=== PATIENT | female | born 1990 ===

== ENCOUNTER 2020-05-15 10:02 | Day surgery (SDC) | payer OTHER ==
[~2020-05-15 10:02] MED LIST: FENTANYL CITRATE INJ/PF 100 MCG/2 ML AMPUL ONE; MIDAZOLAM 2 MG/2 ML INJ ONE; PROPOFOL INJ 200 MG/20 ML VIAL IV ONE
[2020-05-15] MEDS ORDERED: DEXAMETHASONE SOD PHOSPHATE INJ 4 MG/1 ML VIAL ONE (10:31)
[2020-05-15] MEDS ORDERED: ONDANSETRON HCL INJ/PF 4 MG/2 ML SDV ONE (10:31)
[2020-05-15] MEDS ORDERED: KETOROLAC TROMETHAMINE 60 MG/2 ML SDV ONE (10:31)
[2020-05-15] MEDS ORDERED: METOCLOPRAMIDE HCL INJ/PF 10 MG/2 ML SDV ONE (10:31)
[2020-05-15 11:30] LABS: APPEARANCE,URINE SLIGHTLY-CLOUDY; BILIRUBIN,URINE NEGATIVE (NEGATIVE); COLOR,URINE YELLOW; GLUCOSE, URINE NEGATIVE (NEGATIVE); KETONES,URINE NEGATIVE (NEGATIVE); LEUKOCYTE ESTERASE,URINE NEGATIVE (NEGATIVE); NITRITE,URINE NEGATIVE (NEGATIVE); PROTEIN,URINE 30 mg/dL (NEGATIVE); URINE SPECIFIC GRAVITY 1.029; UROBILINOGEN,URINE NEGATIVE mg/dL (<2.0)
[2020-05-15 11:41] LABS: HEMATOCRIT 36.1 % (36.0-47.0); HEMOGLOBIN 12.4 g/dL (12.0-15.5); MEAN CORPUSCULAR HEMOGLOBIN 31.4 pg (27.0-33.4); MEAN CORPUSCULAR HGB CONC 34.4 g/dL (32.0-36.0); MEAN CORPUSCULAR VOLUME 91 fl (80-97); PLATELET COUNT 257 10^3/uL (150-450); RED BLOOD COUNT 3.95 10^6/uL (3.72-5.28); RED CELL DISTRIBUTION WIDTH 11.7 % (11.5-14.0); WHITE BLOOD COUNT 3.9 10^3/uL (4.0-10.5)
[2020-05-15] MEDS ORDERED: MEPERIDINE HCL/PF INJ 25 MG/1 ML DISP.SYRIN IV PRN (12:32)
[2020-05-15] MEDS ORDERED: FENTANYL CITRATE INJ/PF 100 MCG/2 ML AMPUL IV PRN ×2 (12:32)
[2020-05-15] MEDS ORDERED: DIPHENHYDRAMINE HCL 50 MG/ML VIAL IV PRN (12:32)
[2020-05-15] MEDS ORDERED: PROMETHAZINE HCL INJ 25 MG/1 ML VIAL IV PRN (12:32)
[2020-05-15] MEDS ORDERED: KETOROLAC TROMETHAMINE INJ/PF 30 MG/1 ML SDV IM PRN (13:17)
[2020-05-15] MEDS ORDERED: IBUPROFEN 800 MG TABLET ONE (13:27)
[2020-05-15] MEDS ORDERED: IBUPROFEN 800 MG TABLET PO PRN (13:30)
[2020-05-15] MEDS ORDERED: OXYCODONE-ACETAMINOPHEN 5-325 MG TABLET PO PRN ×2 (13:30)
[2020-05-15] MEDS ORDERED: RINGERS SOLUTION,LACTATED 1,000 ML IV PRN (13:30)
--- NOTE | 2020-05-15 14:29 | Operative Report ---
Operative Report DATE OF SURGERY: 05/15/20 PREOPERATIVE DIAGNOSIS: Retained IUD. Failed removal in office. Desired ling muniz POSTOPERATIVE DIAGNOSIS: Same as above OPERATION: Diagnostic hysteroscopy with removal of IUD SURGEON: MARTINEZ LOYOLA ANESTHESIA: LMAC TISSUE REMOVED OR ALTERED: IUD removed COMPLICATIONS: None ESTIMATED BLOOD LOSS: 5 cc INTRAOPERATIVE FINDINGS: IUD seen just inside internal os. Strings upward. Both ostia seen inside normal appearing endometrial cavity PROCEDURE: IV fluids: Crystalloid IV fluids per anesthesia record Disposition: To recovery room in stable condition Description of the procedure: The patient was taken to the operating room where monitored anesthesia was administered and found to be adequate she was then placed in the dorsol lithotomy position and prepped and draped in the usual sterile fashion. A timeout was taken. A bivalve speculum was placed in the vagina and the cervix was brought into good view. A single-tooth tenaculum was used to grasp the anterior lip of the cervix and the cervix was serially dilated. The hysteroscope was then inserted and using a saline distention medium the uterine cavity was inspected multiple pictures were obtained. IUD identified and removed easily with polyp forceps. Pictures obtained and the proc edure was then terminated all instruments were removed from the patient's vagina. The patient tolerated the procedure well all instrument sponge and needle counts were correct x2 for the procedure she will proceed to recovery room in stable condition
[2020-05-15 14:30] VITALS: BP 88/58
--- NOTE | 2020-05-15 14:31 | Discharge Summary ---
Discharge Summary (SDC) - Discharge Final Diagnosis: Retained IUD s/p removal post op Date of Surgery: 05/15/20 Discharge Date: 05/15/20 Condition: Stable Forms: ASU Anesthesia D/C Instruction, Discharge POC-Surgical Service Treatment or Instructions: Please review your discharge paperwork. It contains important information. Please follow the physicians care instructions. Please follow anesthesias care instructions. Call 911 for difficulty breathing, chest pain, or coughing up blood, or if you have sudden severe abdominal pain. Go to the emergency room for bleeding that does not stop, multiple large clots, soaking through more than one sanitary pad an hour, or if you have difficulty urinating or are unable to urinate 6-8 hours after being discharged. Report any signs of infection such as pus, foul drainage, fever, chills. Report any excessive vomiting or nausea that does not go away. You may use heat or cold compresses. You may shower after 24 hours. No tub baths, hot tubs, or swimming pools until otherwise directed by physician. You may use a stool softener. Sleep with your head elevated tonight. Activity as directed by the physician. No sex until otherwise directed by the physician. Nothing goes into your vagina until cleared by the physician. Referrals: MARTINEZ LOYOLA MD [ACTIVE PROVISIONAL STAFF] - (PLEASE KEEP YOUR FOLLOW-UP APPOINTMENT.) Discharge Diet: As Tolerated Respiratory Treatments at Home: Deep Breathing/Coughing Discharge Activity: Activity As Tolerated, Pelvic Rest, No tub bath Home Care Assistance: None Needed Report the Following to Your Physician Immediately: Shortness of Breath, Vomiting, Increase in Pain, Fever over 101 Degrees, Unusual Bleeding, Drainage- Yellow, Drainage-Frost, Drainage-Green, Drainage-Foul Smelling, Increased Vaginal Bleed, Large Clots, Numbness, IV Site Infection Signs
== END 2020-05-15 14:22 | disposition home or self-care (01) ==
LOC: OROUT 10:02
PROVIDERS: ATTEND Obstetrics & Gynecology
DX: Z30.432 Encounter for removal of intrauterine contraceptive device (principal); Z01.812 Encounter for preprocedural laboratory examination; Z20.822 Contact with and (suspected) exposure to COVID-19; F98.8 Other specified behavioral and emotional disorders with onset usually occurring in childhood and adolescence; Z79.899 Other long term (current) drug therapy
CPT/HCPCS: 36415; 85027; 87635; 81025; 81001; 58579; J2250; J3010; J2704; C9803; 952; J1100; J1885; J2405; J2765